=== PATIENT | female | born 1965 | race Caucasian/White ===

== ENCOUNTER 2016-12-10 06:39 | Day surgery (SDC) | payer OTHER ==
[~2016-12-10] VITALS: Ht 162.6 cm; Wt 62.0 kg
[~2016-12-10 06:39] MED LIST: CHOL200014 PO; CYAN500T44 PO; ESCI20TA39 PO; GINK120C PO; HYDR-3702 PO; LACTATED RINGERS 1,000 ML IV SCH; MAGN250T7 PO; MOME0.243 INH; MULT1CAP27 PO; NFLYR75C PO; OMEP20TA33 PO; SODIUM CHLORIDE FLUSH 3 ML SYR IV PRN
[2016-12-10 07:06] VITALS: BP 122/58
[2016-12-10] MEDS ORDERED: PROPOFOL 20 ML IV ONE (08:10)
[2016-12-10] MEDS ORDERED: ALFENTANIL 500 MCG/ML (ALFENTA) 5 ML AMP IV ONE ×2 (08:10)
[2016-12-10] MEDS ORDERED: MIDAZOLAM 2 MG/2 ML (VERSED) VIAL ONE (08:10)
[2016-12-10 08:59] VITALS: BP 113/65
[2016-12-10 09:20] VITALS: BP 112/68
--- NOTE | 2016-12-10 09:40 | OPERATIVE REPORT ---
DATE OF OPERATION: 12/10/2016 PRE-OPERATIVE DIAGNOSIS: 1. Colon screening 2. Right lower quadrant pain. 3. Diarrhea. POST-OPERATIVE DIAGNOSIS: 1. Cecal polyp. 2. Mild mucosal erythema of the colon. OPERATIVE PROCEDURE: Total colonoscopy with forceps polypectomy and multiple segmental biopsies. SURGEON: Abdon Bustillos MD ANESTHESIA: IV conscious sedation, Monitored Anesthesia Services POSITION: Left lateral decubitus ESTIMATED BLOOD LOSS: Minimal FINDINGS: 1. Small, sessile polyp in the pit of the cecum. 2. Mild patchy areas of erythema in otherwise normal appearing mucosa. 3. Good prep. INDICATIONS: This patient with a prior history of ulcerative colitis and previous colonoscopy several years ago had presented for screening. She also noted right lower quadrant pain and loose stools. No blood per rectum. Screening colonoscopy was proposed with segmental biopsies because of the patient's diarrhea. Prior stool studies were reported as negative. OPERATIVE NOTE: Following satisfactory induction of analgesia a digital rectal exam was performed. This revealed normal sphincter tone and no palpable rectal mass. Next the colonoscope was introduced per rectum and advanced under CO2 insufflation and direct vision to the cecum. The cecum was identified by convergence of the teniae, ileocecal valve and palpation of the right lower quadrant. Attempts to intubate the terminal ileum were unsuccessful. Computer Salesperson Retail photographs were obtained. The above findings were noted. The polyp was removed with cold biopsy forceps and submitted to pathology. Good hemostasis was noted of the polypectomy site. Careful inspection of the mucosa was again accomplished as the scope was slowly withdrawn. Multiple biopsies of each colon segment were obtained with cold biopsy forceps and submitted separately to pathology. Good hemostasis was noted at the biopsy sites. Retroflexed view in the rectum was normal. Excess insufflated CO2 was evacuated and the scope removed. The patient tolerated the procedure well and transferred to recovery in stable condition. RECOMMENDATIONS: Schedule a small bowel follow through in the postoperative period. Pending biopsy results, if this is an adenomatous polyp the patient will need to have repeat colonoscopy in 5 years.
--- NOTE | 2016-12-10 15:03 | Diagnostic Imaging Report ---
INDICATION: Diarrhea. Abdominal pain. COMPARISON: None available. FINDINGS: Radio Engineering Teacher film of the abdomen is within normal limits. Barium was swallowed and serial small bowel films were obtained. The ligament of Treitz is in normal position. The jejunal and ileal loops show normal fold thickness. No mucosal lesion is identified. There is no abnormal separation of small bowel loops. Spot films of the small bowel including the terminal ileum are within normal limits. IMPRESSION: 1. Negative small bowel barium survey. Dictated by: Dictated on workstation # [id number]
== END 2016-12-10 11:32 | disposition home or self-care (01) ==
LOC: ASC 06:39
PROVIDERS: ATTEND Surgery
PROC: 0DBH8ZX Excision of Cecum, Via Natural or Artificial Opening Endoscopic, Diagnostic (ICD-10-PCS; principal; 2016-12-10)
PROC: 0DBK8ZX Excision of Ascending Colon, Via Natural or Artificial Opening Endoscopic, Diagnostic (ICD-10-PCS; 2016-12-10)
PROC: 0DBL8ZX Excision of Transverse Colon, Via Natural or Artificial Opening Endoscopic, Diagnostic (ICD-10-PCS; 2016-12-10)
PROC: 0DBM8ZX Excision of Descending Colon, Via Natural or Artificial Opening Endoscopic, Diagnostic (ICD-10-PCS; 2016-12-10)
PROC: 0DBN8ZX Excision of Sigmoid Colon, Via Natural or Artificial Opening Endoscopic, Diagnostic (ICD-10-PCS; 2016-12-10)
PROC: 0DBP8ZX Excision of Rectum, Via Natural or Artificial Opening Endoscopic, Diagnostic (ICD-10-PCS; 2016-12-10)
DX: Z12.11 Encounter for screening for malignant neoplasm of colon (principal); D12.0 Benign neoplasm of cecum; R10.31 Right lower quadrant pain; R19.7 Diarrhea, unspecified; Z87.19 Personal history of other diseases of the digestive system; K76.89 Other specified diseases of liver
CPT/HCPCS: 45380; 74250; J2250; J7120

== ENCOUNTER → 2017-01-25 | Outpatient (REF) | payer OTHER ==
[2017-01-25 17:32] LABS: BAND NEUTROPHILS % 0 % (0-6); MEAN CORPUSCULAR HEMOGLOBIN 29.2 PG (26.0-34.0); MEAN CORPUSCULAR HGB CONC 34.2 g/dL (31.0-37.0); MEAN CORPUSCULAR VOLUME 85 FL (80-100); MEAN PLATELET VOLUME 10.7 FL (6.0-9.5); PLATELET COUNT 296 10^3uL (150-450); SEGMENTED NEUTROPHILS % 37 % (51-67)
[2017-01-25 17:33] LABS: EOSINOPHILS % 6 % (0-4); LYMPHOCYTES # 2.5 #; MONOCYTES # 0.5 #; MONOCYTES % 9 % (3-11); RBC MORPH NORMAL (NORMAL); TOTAL CELLS COUNTED 100
== END ==
LOC: LAB 17:20
PROVIDERS: ATTEND Nurse Practitioner Family
DX: R10.32 Left lower quadrant pain (principal)
CPT/HCPCS: 85025

== ENCOUNTER → 2017-02-08 | Outpatient (REF) | payer OTHER ==
[2017-02-08 10:18] LABS: ALBUMIN 4.5 g/dL (3.4-5.0); ANION GAP 12.1 MEQ/L (3-15); CALCULATED IONIZED CALCIUM 4.1 mg/dL (3.8-4.6); TOTAL PROTEIN 7.6 g/dL (6.4-8.5)
[2017-02-08 11:05] LABS: BILIRUBIN,URINE Negative (Negative); CLARITY,URINE Clear; COLOR,URINE Yellow; GLUCOSE, URINE (UA) Negative (Negative); LEUKOCYTE ESTERASE ,URINE Trace (Negative); PH,URINE 6.5 (5.0 - 8.0); UROBILINOGEN,URINE 0.2 mg/dL (0.2-1.0)
[2017-02-08 11:54] LABS: RBC,URINE 0-2 /HPF; URINE CENTRIFUGED VOLUME 12 mL
[2017-02-08 14:18] LABS: MEAN CORPUSCULAR HGB CONC 32.2 g/dL (31.0-37.0); MEAN CORPUSCULAR VOLUME 87 FL (80-100); MEAN PLATELET VOLUME 11.9 FL (6.0-9.5); PLATELET COUNT 336 10^3uL (150-450); WHITE BLOOD COUNT 4.78 10^3uL (4.0-11.0)
[2017-02-08 14:44] LABS: BAND NEUTROPHILS % 0 % (0-6); EOSINOPHILS % 11 % (0-4); LYMPHOCYTES # 2.4 #; MONOCYTES # 0.5 #; MONOCYTES % 12 % (3-11); RBC MORPH NORMAL (NORMAL); SEGMENTED NEUTROPHILS % 25 % (51-67); TOTAL CELLS COUNTED 100
[2017-02-08 18:50] LABS: GC-CHLAMYDIA SOURCE URINE; N.gonorrhoeae SOURCE URINE
== END ==
LOC: LAB 09:50
PROVIDERS: ATTEND Family Medicine
DX: R10.31 Right lower quadrant pain (principal); N89.8 Other specified noninflammatory disorders of vagina; R19.8 Other specified symptoms and signs involving the digestive system and abdomen; M54.6 Pain in thoracic spine; F32.0 Major depressive disorder, single episode, mild
CPT/HCPCS: 80053; 81003; 81015; 84443; 85025; 87088; 87210; 87491; 87591

== ENCOUNTER → 2017-02-13 | Outpatient (CLI) | payer OTHER | LOC: RAD 09:02 | PROVIDERS: ATTEND Family Medicine | DX: N82.3 Fistula of vagina to large intestine (principal) | CPT/HCPCS: 74270 ==

== ENCOUNTER → 2017-02-15 | Outpatient (REF) | payer OTHER | LOC: LAB 11:49 | PROVIDERS: ATTEND Family Medicine | DX: N89.8 Other specified noninflammatory disorders of vagina (principal) | CPT/HCPCS: 87070; 87147; 87205 ==

== ENCOUNTER → 2017-02-21 | Outpatient (CLI) | payer OTHER ==
[~2017-02-21] MED LIST changes: -LACTATED RINGERS 1,000 ML IV SCH; -SODIUM CHLORIDE FLUSH 3 ML SYR IV PRN
--- NOTE | 2017-02-21 13:21 | Diagnostic Imaging Report ---
PROCEDURE: MRI pelvis with and without contrast. TECHNIQUE: Multiplanar, multisequence MRI of the pelvis was performed with and without contrast. DATE: February 21, 2017. INDICATION: A 51-year-old female, chronic pelvic pain, purulent vaginal discharge. COMPARISON: CT abdomen and pelvis without contrast, November 13, 2016. FINDINGS: The uterus is not seen and may be surgically absent. There is no identified adnexal mass. There is no identified drainable fluid collection or abscess. The urinary bladder is unremarkable in appearance. There is no free pelvic fluid. The visualized portions of the intestinal tract are not distended. There are annular tears and small central disc protrusions at L4-L5 and L5-S1 without high-grade spinal stenosis. There is no high-grade foraminal narrowing at these levels. There are benign perineural cysts at the level of S2 bilaterally. The bone marrow signal is grossly unremarkable. IMPRESSION: 1. Nonvisualization of the uterus which may be postsurgically absent. 2. No identified adnexal mass. 3. No free pelvic fluid, drainable fluid collection, or abscess. 4. Unremarkable appearance of the urinary bladder. 5. Annular tears and small central disc protrusions at L4-L5 and L5-S1 without identified high-grade foraminal or spinal stenosis. Dictated by: Dictated on workstation # [id number]
== END ==
LOC: RAD 08:42
PROVIDERS: ATTEND Family Medicine
DX: R10.2 Pelvic and perineal pain (principal); N89.8 Other specified noninflammatory disorders of vagina
CPT/HCPCS: 72197; A9579

== ENCOUNTER → 2017-03-11 | Outpatient (REF) | payer OTHER | LOC: LAB 09:18 | PROVIDERS: ATTEND Nurse Practitioner Family | DX: M81.0 Age-related osteoporosis without current pathological fracture (principal); Z13.6 Encounter for screening for cardiovascular disorders | CPT/HCPCS: 80061; 82306 ==

== ENCOUNTER → 2017-03-18 | Outpatient (CLI) | payer OTHER ==
--- NOTE | 2017-03-18 13:22 | Diagnostic Imaging Report ---
INDICATION: Osteoporosis. EXAMINATION: DEXA from 03/18/2017. FINDINGS: This scan is considered osteoporotic according to World Health Organization guidelines. Fracture risk is high. Treatment is advised. A followup DEXA in one year is recommended. Please refer to the detailed Bone Density report faxed separately from this report. IMPRESSION: Osteoporosis with a moderate increased fracture risk. Dictated by: Dictated on workstation # [id number]
== END ==
LOC: RAD 12:43
PROVIDERS: ATTEND Nurse Practitioner Family
DX: M81.0 Age-related osteoporosis without current pathological fracture (principal)
CPT/HCPCS: 77080